=== PATIENT | male | born 1970 | race African-American/Black ===

== ENCOUNTER 2019-04-04 05:34 | Inpatient (IN) ==
[2019-04-04] MEDS ORDERED: ALBUTEROL NEB SOLN 5 MG/ML 20 ML/BOTTLE CONT NEB STA (05:56)
[2019-04-04 06:05] LABS: PT Patient Result 10.4 SECS
[2019-04-04 06:08] LABS: Basophils # 0.1 10*3/uL (0.0-0.2); Basophils % 0.5 % (0.0-0.8); Eosinophils # 0.2 10*3/uL (0.0-0.87); Eosinophils % 1.6 % (0.00-10.9); Hematocrit 42.7 VOL% (42.0-52.0); Hemoglobin 14.8 GM/DL (14.0-18.0); Immature Granulocytes % 0.2 %; Immature Granulocytes Absolute 0.02 #; Lymphocytes # 3.7 10*3/uL (1.4-4.0); Lymphocytes % 37.1 % (21.2-54.2); Mean Corpuscular HGB Conc 34.7 GM/DL (32-36); Mean Corpuscular Volume 96.6 FL (87-102); Mean Platelet Volume 9.9 FL (9.6-12.0); Monocytes % 5.2 % (1.7-12.7); Neutrophils % 55.4 % (38.7-73.9); Platelet Count 260 T/CUMM (130-400); Red Blood Count 4.42 MC/CUMM (3.8-5.5); Red Cell Distribution Width 13.2 % (9.3-17.3); White Blood Count 10.1 T/CUMM (4-12)
[2019-04-04 06:17] LABS: Albumin 3.5 G/DL (3.4-5.0); Bilirubin,Total 0.5 MG/DL (0.2-1.0); Calcium 9.1 MG/DL (8.5-10.1); Osmolality,Calculated 284.8 MOS/KG (273-304); Total Protein 6.9 G/DL (6.4-8.3)
[2019-04-04] MEDS ORDERED: ONDANSETRON 4 MG/2 ML VIAL IV PRN (07:38)
[2019-04-04] MEDS ORDERED: guaiFENesin/DM ER 600-30 MG TABLET PO PRN (07:38)
[2019-04-04] MEDS ORDERED: DOCUSATE SODIUM 100 MG CAPSULE PO PRN (07:38)
[2019-04-04] MEDS ORDERED: hydrALAZINE 20 MG/1 ML VIAL IV STA (07:40)
[2019-04-04] MEDS ORDERED: hydrALAZINE 20 MG/1 ML VIAL ONE (07:42)
[2019-04-04] MEDS ORDERED: methylPREDNISolone SOD SUC 125 MG/2 ML VIAL IV STA (07:43)
[2019-04-04] MEDS ORDERED: hydrALAZINE 20 MG/1 ML VIAL IV PRN (07:49)
[2019-04-04] MEDS: ENOXAPARIN 40 MG/0.4 ML SYRINGE SUBCUT SCH (08:09)
[2019-04-04] MEDS: amLODIPine 5 MG TABLET PO SCH (11:36)
[2019-04-04] MEDS: PANTOPRAZOLE 40 MG TABLET PO SCH (11:36)
[2019-04-04] MEDS: SPIRONOLACTONE 25 MG TABLET PO SCH (11:36)
[2019-04-04] MEDS: ALBUTEROL/IPRATROPIUM 3 ML NEB RESP TX SCH ×2 (12:59→19:02)
[2019-04-04] MEDS: methylPREDNISolone SOD SUC 40 MG/1 ML VIAL IV SCH ×2 (16:24→23:27)
[2019-04-04] MEDS: ACETAMINOPHEN 325 MG TABLET PO PRN (22:11)
[2019-04-05] MEDS: ALBUTEROL/IPRATROPIUM 3 ML NEB RESP TX SCH ×4 (00:31→19:13)
[2019-04-05 05:16] LABS: Basophils % 0.1 % (0.0-0.8); Hematocrit 41.5 VOL% (42.0-52.0); Hemoglobin 14.4 GM/DL (14.0-18.0); Immature Granulocytes % 0.5 %; Lymphocytes # 1.5 10*3/uL (1.4-4.0); Lymphocytes % 7.9 % (21.2-54.2); Mean Corpuscular HGB Conc 34.7 GM/DL (32-36); Mean Corpuscular Volume 95.6 FL (87-102); Mean Platelet Volume 10.5 FL (9.6-12.0); Monocytes % 3.4 % (1.7-12.7); Neutrophils % 88.1 % (38.7-73.9); Platelet Count 267 T/CUMM (130-400); Red Blood Count 4.34 MC/CUMM (3.8-5.5); Red Cell Distribution Width 13.1 % (9.3-17.3); White Blood Count 18.6 T/CUMM (4-12)
[2019-04-05 06:06] LABS: Albumin 3.4 G/DL (3.4-5.0); Bilirubin,Total 0.5 MG/DL (0.2-1.0); Calcium 9.1 MG/DL (8.5-10.1); Osmolality,Calculated 283.1 MOS/KG (273-304); Risk Ratio 1.96; Thyroid Stimulating Hormone 0.269 uIU/ml (0.358-3.74); Total Protein 6.9 G/DL (6.4-8.3); VLDL CHOLESTEROL 8.2 MG/DL
[2019-04-05] MEDS: ACETAMINOPHEN 325 MG TABLET PO PRN ×2 (09:54→20:20)
[2019-04-05] MEDS: ENOXAPARIN 40 MG/0.4 ML SYRINGE SUBCUT SCH (09:54)
[2019-04-05] MEDS: SPIRONOLACTONE 25 MG TABLET PO SCH (09:55)
[2019-04-05] MEDS: methylPREDNISolone SOD SUC 40 MG/1 ML VIAL IV SCH ×2 (09:55→17:10)
[2019-04-05] MEDS: PANTOPRAZOLE 40 MG TABLET PO SCH (09:55)
[2019-04-05] MEDS: amLODIPine 5 MG TABLET PO SCH ×2 (09:55→20:21)
[2019-04-06] MEDS: ALBUTEROL/IPRATROPIUM 3 ML NEB RESP TX SCH ×2 (00:04→07:42)
[2019-04-06] MEDS: methylPREDNISolone SOD SUC 40 MG/1 ML VIAL IV SCH ×2 (00:33→08:22)
[2019-04-06] MEDS: PANTOPRAZOLE 40 MG TABLET PO SCH (08:22)
[2019-04-06] MEDS: amLODIPine 5 MG TABLET PO SCH (08:22)
[2019-04-06] MEDS: ENOXAPARIN 40 MG/0.4 ML SYRINGE SUBCUT SCH (08:22)
[2019-04-06] MEDS: SPIRONOLACTONE 25 MG TABLET PO SCH (08:22)
[2019-04-06 09:11] LABS: Basophils % 0.1 % (0.0-0.8); Hematocrit 46.5 VOL% (42.0-52.0); Hemoglobin 15.9 GM/DL (14.0-18.0); Immature Granulocytes % 0.8 %; Immature Granulocytes Absolute 0.17 #; Lymphocytes # 1.4 10*3/uL (1.4-4.0); Lymphocytes % 6.2 % (21.2-54.2); Mean Corpuscular HGB Conc 34.2 GM/DL (32-36); Mean Corpuscular Volume 97.1 FL (87-102); Mean Platelet Volume 10.6 FL (9.6-12.0); Monocytes % 2.7 % (1.7-12.7); Neutrophils % 90.2 % (38.7-73.9); Platelet Count 261 T/CUMM (130-400); Red Blood Count 4.79 MC/CUMM (3.8-5.5); Red Cell Distribution Width 13.5 % (9.3-17.3)
[2019-04-06 09:30] LABS: Calcium 9.9 MG/DL (8.5-10.1); Osmolality,Calculated 283.3 MOS/KG (273-304)
[2019-04-06] MEDS: ACETAMINOPHEN 325 MG TABLET PO PRN (10:30)
[2019-04-06 10:59] LABS: Giant Platelets Few; Lymphocytes 6 % (20-55); Platelet Estimate Adequate; Polychromasia Slight; Reactive Lymphocytes Few; Segmented Neutrophils 92 % (50-85); Total Cells Counted 100
[2019-04-06 12:49] VITALS: BP 154/92
== END 2019-04-06 14:30 | disposition home or self-care (01) | DRG 191 ==
LOC: EDBD → EDUNIT# → N.ED 05:34 → SUATTDRO 10:40 → N.EDINP 10:40 → N.5E 11:26
PROVIDERS: ADMIT Family Medicine; ATTEND Internal Medicine